=== PATIENT | male | born 1980 | race Caucasian/White ===

== ENCOUNTER 2017-04-05 12:33 | Emergency (ER) | payer OTHER ==
[~2017-04-05] VITALS: Ht 203.2 cm; Wt 117.9 kg
[~2017-04-05 12:33] MED LIST: AMOX-362 PO; IBUP800T37 PO
--- NOTE | 2017-04-05 12:49 | ER Report ---
History and Physical Time Seen By MD: 12:40 Hx. of Stated Complaint: pt fell down [id number] 6 steps, landing on his left shoulder HPI/ROS CHIEF COMPLAINT: Left shoulder pain/injury HISTORY OF PRESENT ILLNESS: Presents to ED with complaint of left shoulder injury that occurred last night. He states that he was walking down the stairs and fell onto his left elbow area but states that he has not had much pain with his left elbow but more in his left shoulder. He states that he is having difficulty with moving his left shoulder. He denies any previous left shoulder injuries. He has not taken any medication for pain relief. He has not applied ice to the injury. REVIEW OF SYSTEMS: Respiratory: No cough, no dyspnea. Cardiovascular: No chest pain, no palpitations. Gastrointestinal: No vomiting, no abdominal pain. Musculoskeletal: See history of present illness. 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 Patient appears to be in no acute distress. Respiratory: Chest is non tender, lungs are clear to auscultation. Cardiac: regular rate and rhythm Musculoskeletal: Neck: Neck is supple and non tender. There is pain with palpation of the left shoulder particularly on the lateral aspect. No swelling or ecchymosis identified. Limited range of motion due to pain. Brachial and radial pulses are 2+ with normal capillary refill. Normal sensation. Skin: No rashes or lesions. DIFFERENTIAL DIAGNOSIS: After history and physical exam differential diagnosis was considered for left shoulder pain including left shoulder strain, rotator cuff injury, shoulder dislocation. Medical Decision Making EKG/Imaging Imaging Left Shoulder Xrays: IMPRESSION: 1. No acute osteoarticular abnormality left shoulder seen Report Dictated By: Addis Hernadez MD at 04/05/2017 1:41 PM Report E-Signed By: Addis Hernadez MD at 04/05/2017 1:42 PM ED Course/Re-evaluation ED Course Will obtain left shoulder x-rays. 04/05/2017 1:54:04 pm - discussed x-ray results with patient. There appears to be no fracture or dislocation. Given his exam and pain he may have a muscle- type injury and the biceps her rotator cuff. Will give him referral to orthopedics. Decision to Disposition Date: Apr 05, 2017 Decision to Disposition Time: 13:54 Depart Departure Latest Vital Signs Vital Signs Date Time Temp Pulse Resp B/P (MAP) Pulse Ox O2 Delivery O2 Flow Rate FiO2 04/05/17 12:45 98.0 95 18 134/84 94 Room Air Impression: Primary Impression: Injury of left shoulder Condition: Improved Disposition: HOME OR SELF-CARE Referrals: MICHAEL WEST NP-C (PCP) [facility] Patient Instructions: Shoulder Pain (ED) Additional Instructions: Rest, ice. May take Tylenol or ibuprofen for pain relief. Follow-up with primary care provider in orthopedics in 2-3 days. If having worsening or concerning symptoms return to the emergency department. Problem Qualifiers Primary Impression: Injury of left shoulder Encounter type: initial encounter Qualified Codes: S49.92XA - Unspecified injury of left shoulder and upper arm, initial encounter ELLE CRESPO PA-C Apr 05, 2017 12:49
--- NOTE | 2017-04-05 13:48 | RADIOLOGY IMAGING REPORT ---
FACILITY: [facility] PATIENT NAME: Edwar Shipman : 1980 MR: [id number] V: [id number] EXAM DATE: ORDERING PHYSICIAN: ELLE CRESPO TECHNOLOGIST: [place] [facility] [place]war Ship[place] : 1980 Visit/Account:[id number] Date of Sevice: 04/05/2017 Exam type: SHOULDER MIN 2 VIEWS LEFT History: left shoulder pain, fell last night. Comparison: None. Findings: Two views the left shoulder reveals no evidence of acute fracture or dislocation. No evidence of a l eft AC joint separation. The visualized left ribs are intact IMPRESSION: 1. No acute osteoarticular abnormality left shoulder seen Report Dictated By: Addis Hernadez MD at 04/05/2017 1:41 PM Report E-Signed By: Addis Hernadez MD at 04/05/2017 1:42 PM WSN:[email or web address]
[2017-04-05 14:01] VITALS: BP 146/95
== END 2017-04-05 14:05 | disposition home or self-care (01) ==
LOC: ER 12:42
DX: S49.92XA Unspecified injury of left shoulder and upper arm, initial encounter (principal); W10.9XXA Fall (on) (from) unspecified stairs and steps, initial encounter
CPT/HCPCS: 99284

== ENCOUNTER → 2017-05-27 | Outpatient (CLI) | payer OTHER | LOC: RESP 20:52 | PROVIDERS: ATTEND Physician Assistant | DX: G47.33 Obstructive sleep apnea (adult) (pediatric) (principal); G47.61 Periodic limb movement disorder; G47.36 Sleep related hypoventilation in conditions classified elsewhere; E66.3 Overweight ==